=== PATIENT | female | born 1945 | race Caucasian/White ===

== ENCOUNTER → 2022-02-13 08:55 | Outpatient (CLI) | payer MEDICARE, OTHER, SELFPAY ==
--- NOTE | 2022-02-13 09:10 | XR_ITS ---
FINAL REPORT CLINICAL HISTORY: wound FINDINGS: AP, oblique and lateral views of the left foot were obtained. There is no prior exam for comparison. There is osteopenia which limits the exam. There is no gross fracture or dislocation. 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 Vascular calcifications are present. IMPRESSION: No convincing osseous abnormality of the left foot. Osteopenia and degenerative joint disease. Reviewed, Interpreted and Dictated by Lizzeth Garsia MD Transcribed by Becky Brown Authenticated and . [facility]
--- NOTE | 2022-02-13 09:10 | XR_ITS ---
FINAL REPORT CLINICAL HISTORY: wound FINDINGS: AP, oblique and lateral views of the right foot were obtained. There is no prior exam for comparison. There is no displaced fracture or dislocation. The bones are osteopenic which limits evaluation for fracture. 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 There is soft tissue edema of the medial forefoot. There may be a soft tissue defect posterior to the calcaneus. IMPRESSION: Soft tissue edema of the medial forefoot. Possible soft tissue defect posterior to the calcaneus. Osteopenia. Reviewed, Interpreted and Dictated by Lizzeth Garsia MD Transcribed by Becky Brown Authenticated and [facility]
== END ==
PROVIDERS: PCP Ophthalmology; Visit Provider Podiatrist
DX: M79.672 Pain in left foot (principal); Z51.89 Encounter for other specified aftercare; M79.671 Pain in right foot
CPT/HCPCS: 73630

== ENCOUNTER → 2022-02-14 06:00 | Outpatient (CLI) | payer MEDICARE, OTHER, SELFPAY | PROVIDERS: Visit Provider Podiatrist | DX: L97.519 Non-pressure chronic ulcer of other part of right foot with unspecified severity (principal); Z51.89 Encounter for other specified aftercare | CPT/HCPCS: 87070; 87077; 87186; 87205 ==

== ENCOUNTER → 2022-02-16 14:44 | Outpatient (CLI) | payer MEDICARE, OTHER, SELFPAY ==
--- NOTE | 2022-02-16 14:45 | US_ITS ---
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 FINDINGS: BILATERAL ANKLE BRACHIAL INDICES Pressure indices are as follows are: RIGHT LOWER EXTREMITY Ankle brachial pressure index: 1.4 Toe brachial pressure index: 1.0 COMMENTS: Normal LEFT LOWER EXTREMITY Ankle brachial pressure index: 1.5 Toe brachial pressure index: 1.1 COMMENTS: Normal IMPRESSION: No evidence of significant obstructive peripheral vascular disease of the lower extremities. Reviewed, Interpreted and Dictated by Lizzeth Garsia MD Transcribed by Yany Navarrete Authenticated and [facility]
== END ==
PROVIDERS: PCP Ophthalmology; Visit Provider Podiatrist
DX: R09.89 Other specified symptoms and signs involving the circulatory and respiratory systems (principal)
CPT/HCPCS: 93923

== ENCOUNTER → 2022-02-20 12:12 | Outpatient (CLI) | payer MEDICARE, OTHER, SELFPAY ==
[2022-02-20 12:38] LABS: Basophils # 0.1 K/mm3 (0-0.2); Basophils % 1.7 % (0.1-2.0); Eosinophils # 0.3 K/mm3 (0.0-0.4); Eosinophils % 4.9 % (0.1-12.0); Hematocrit 34.2 % (37.0-47.0); Hemoglobin 10.3 g/dL (12.2-16.2); Lymphocytes # 1.4 K/mm3 (0.7-4.5); Lymphocytes % 28.4 % (10-50); Mean Corpuscular HGB Conc 30.2 g/dL (31.8-35.4); Mean Corpuscular Hemoglobin 28.4 pg (27.0-31.2); Monocytes # 0.3 K/mm3 (0.1-1.0); Platelet Count 197 K/mm3 (142-424); Red Blood Count 3.64 M/mm3 (4.20-5.40); Red Cell Distribution Width 16.4 % (11.5-17.5)
[2022-02-20 12:44] LABS: Chloride 103 mmol/L (98-107); Potassium 4.4 mmoL/L (3.5-5.1)
[2022-02-20 12:46] LABS: Alanine Aminotransferase 13 U/L (12-78); Aspartate Amino Transferase 29 U/L (14-36)
[2022-02-20 12:47] LABS: Albumin Level 3.3 g/dl (3.5-5.0); Alkaline Phosphatase 183 U/L (38-126); Bilirubin,Total 0.2 mg/dl (0.2-1.3); Calcium 8.7 mg/dl (8.4-10.2); Carbon Dioxide 32 mmol/L (22.0-30.0); Glucose 92 mg/dl (74-100); Total Protein,Serum 7.5 g/dl (6.3-8.2)
[2022-02-20 12:51] LABS: Albumin/Globulin Ratio 0.8 (1.1-1.8); Globulin 4.2 g/dL (1.3-3.2)
[2022-02-20 12:52] LABS: C-Reactive Protein 65.3 mg/L (0-4)
[2022-02-20 13:07] LABS: Estimated Glomerular Filt Rate 18 ml/min (>60); GFR (African American) 22 ML/MIN (>60)
[2022-02-20 13:09] LABS: Hemoglobin A1C 5.5 % (4.0-6.0)
[2022-02-20 13:11] LABS: Blood Urea Nitrogen 15 mg/dl (7-17)
[2022-02-20 13:31] LABS: Anion Gap 9.4 mEq/L (5-15); Sodium 140 mmol/L (136-145)
== END ==
PROVIDERS: PCP Family Medicine; Visit Provider Podiatrist
DX: L97.519 Non-pressure chronic ulcer of other part of right foot with unspecified severity (principal); Z51.89 Encounter for other specified aftercare; E11.621 Type 2 diabetes mellitus with foot ulcer; Z79.4 Long term (current) use of insulin
CPT/HCPCS: 36415; 80053; 83036; 85025; 86140

== ENCOUNTER → 2022-02-27 06:00 | Outpatient (CLI) | payer MEDICARE, OTHER, SELFPAY | PROVIDERS: Visit Provider Podiatrist | DX: Z51.89 Encounter for other specified aftercare (principal); L97.512 Non-pressure chronic ulcer of other part of right foot with fat layer exposed; B96.4 Proteus (mirabilis) (morganii) as the cause of diseases classified elsewhere; B96.89 Other specified bacterial agents as the cause of diseases classified elsewhere | CPT/HCPCS: 87070; 87077; 87186; 87205 ==

== ENCOUNTER → 2022-03-06 10:11 | Outpatient (CLI) | payer MEDICARE, OTHER, SELFPAY ==
[2022-03-06 11:22] LABS: Basophils # 0.1 K/mm3 (0-0.2); Eosinophils # 0.2 K/mm3 (0.0-0.4); Eosinophils % 3.8 % (0.1-12.0); Hematocrit 36.9 % (37.0-47.0); Hemoglobin 10.8 g/dL (12.2-16.2); Lymphocytes # 1.4 K/mm3 (0.7-4.5); Lymphocytes % 28.8 % (10-50); Mean Corpuscular HGB Conc 29.1 g/dL (31.8-35.4); Mean Corpuscular Volume 99.7 fl (81-99); Mean Platelet Volume 9.4 fl (7.4-10.4); Monocytes # 0.3 K/mm3 (0.1-1.0); Monocytes % 6.2 % (1.7-9.3); Neutrophils % 60.1 % (37.0-80.0); Platelet Count 177 K/mm3 (142-424); Red Blood Count 3.71 M/mm3 (4.20-5.40); Red Cell Distribution Width 19.6 % (11.5-17.5)
[2022-03-06 11:24] LABS: Erythrocyte Sedimentation Rate 28 mm/hr (0-30)
[2022-03-06 11:43] LABS: Chloride 104 mmol/L (98-107); Potassium 4.6 mmoL/L (3.5-5.1); Sodium 136 mmol/L (136-145)
[2022-03-06 11:45] LABS: Blood Urea Nitrogen 33 mg/dl (7-17); Estimated Glomerular Filt Rate 16 ml/min (>60); GFR (African American) 19 ML/MIN (>60)
[2022-03-06 11:46] LABS: Alanine Aminotransferase 10 U/L (12-78); Albumin Level 2.7 g/dl (3.5-5.0); Albumin/Globulin Ratio 0.7 (1.1-1.8); Alkaline Phosphatase 136 U/L (38-126); Anion Gap 9.6 mEq/L (5-15); Aspartate Amino Transferase 34 U/L (14-36); Bilirubin,Total 0.2 mg/dl (0.2-1.3); Calcium 8.2 mg/dl (8.4-10.2); Carbon Dioxide 27 mmol/L (22.0-30.0); Globulin 3.7 g/dL (1.3-3.2); Glucose 110 mg/dl (74-100); Total Protein,Serum 6.4 g/dl (6.3-8.2)
[2022-03-06 11:52] LABS: C-Reactive Protein 56.2 mg/L (0-4)
== END ==
PROVIDERS: PCP Family Medicine; Visit Provider Podiatrist
DX: Z51.89 Encounter for other specified aftercare (principal); E11.621 Type 2 diabetes mellitus with foot ulcer; Z79.4 Long term (current) use of insulin; L97.512 Non-pressure chronic ulcer of other part of right foot with fat layer exposed; L03.115 Cellulitis of right lower limb; R79.82 Elevated C-reactive protein (CRP)
CPT/HCPCS: 36415; 80053; 85025; 85651; 86140

== ENCOUNTER → 2022-03-19 12:19 | Outpatient (CLI) | payer MEDICARE, OTHER, SELFPAY ==
[2022-03-19 13:18] LABS: Basophils % 0.9 % (0.1-2.0); Eosinophils # 0.1 K/mm3 (0.0-0.4); Eosinophils % 3.2 % (0.1-12.0); Hematocrit 39.7 % (37.0-47.0); Hemoglobin 11.3 g/dL (12.2-16.2); Lymphocytes # 1.2 K/mm3 (0.7-4.5); Lymphocytes % 31.4 % (10-50); Mean Corpuscular HGB Conc 28.4 g/dL (31.8-35.4); Mean Corpuscular Hemoglobin 28.3 pg (27.0-31.2); Mean Corpuscular Volume 99.9 fl (81-99); Monocytes # 0.2 K/mm3 (0.1-1.0); Monocytes % 5.7 % (1.7-9.3); Neutrophils # 2.3 K/mm3 (1.8-7.8); Neutrophils % 58.8 % (37.0-80.0); Platelet Count 183 K/mm3 (142-424); Red Blood Count 3.97 M/mm3 (4.20-5.40); Red Cell Distribution Width 19.6 % (11.5-17.5); White Blood Count 3.9 K/mm3 (4.8-10.8)
[2022-03-19 13:28] LABS: Alanine Aminotransferase 23 U/L (12-78); Albumin Level 2.8 g/dl (3.5-5.0); Albumin/Globulin Ratio 0.8 (1.1-1.8); Alkaline Phosphatase 189 U/L (38-126); Anion Gap 10.4 mEq/L (5-15); Aspartate Amino Transferase 46 U/L (14-36); Bilirubin,Total 0.2 mg/dl (0.2-1.3); Blood Urea Nitrogen 32 mg/dl (7-17); Calcium 8.4 mg/dl (8.4-10.2); Carbon Dioxide 28 mmol/L (22.0-30.0); Chloride 103 mmol/L (98-107); Estimated Glomerular Filt Rate 17 ml/min (>60); GFR (African American) 21 ML/MIN (>60); Globulin 3.6 g/dL (1.3-3.2); Glucose 115 mg/dl (74-100); Potassium 5.4 mmoL/L (3.5-5.1); Sodium 136 mmol/L (136-145); Total Protein,Serum 6.4 g/dl (6.3-8.2)
[2022-03-19 13:34] LABS: C-Reactive Protein 38.5 mg/L (0-4)
[2022-03-19 13:55] LABS: Erythrocyte Sedimentation Rate 39 mm/hr (0-30)
== END ==
PROVIDERS: PCP Family Medicine; Visit Provider Nurse Practitioner Family
DX: Z51.89 Encounter for other specified aftercare (principal); L97.519 Non-pressure chronic ulcer of other part of right foot with unspecified severity
CPT/HCPCS: 36415; 80053; 85025; 85651; 86140